=== PATIENT | female | born 1960 | race Caucasian/White ===

== ENCOUNTER 2018-10-09 09:11 | Emergency (ER) | payer BC ==
[2018-10-09 09:42] VITALS: BP 139/73
--- NOTE | 2018-10-09 10:28 | UC ---
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 Symptoms would "ebb and flow"; has been gradually worsening." -has been using saline rinses and azelastine. has h/o sinus infections. usually uses augmentin - History of Current Complaint Chief Complaint: UCGeneralIllness Stated Complaint: SINUSES Time Seen by Provider: 10/09/18 10:13 Hx Last Menstrual Period: 10 yrs Pain Intensity: 0 - Allergies/Home Medications Allergies/Adverse Reactions: Allergies Allergy/AdvReac Type Severity Reaction Status Date / Time morphine Allergy Altered Verified 10/09/18 09:37 Mental Status Home Medications: Home Medications Atorvastatin* [Lipitor*] 10 mg PO DAILY 10/09/18 [History Confirmed 10/09/18] buPROPion SR TAB* [Wellbutrin SR TAB*] 100 mg PO DAILY 10/09/18 [History Confirmed 10/09/18] PMH/Surg Hx/FS Hx/Imm Hx Previously Healthy: Yes Endocrine History: Diabetes - Surgical History Surgical History: Yes Surgery Procedure, Year, and Place: left knee 04/2014 [facility]; 3 level cervical disc 2008 [facility] [place]; hysterectomy 2004, breast reduction 2004; cholecystectomy 1994 [facility] - Family History Known Family History: Positive: Diabetes Negative: Cardiac Disease, Hypertension, Respiratory Disease - no asthma - Social History Alcohol Use: Rare Substance Use Type: None Smoking Status (MU): Former Smoker Length of Time of Smoking/Using Tobacco: 1 PPD x 15 Years When Did the Patient Quit Smoking/Using Tobacco: ~ Review of Systems All Other Systems Reviewed And Are Negative: Yes Constitutional: Positive: Fatigue Skin: Positive: Negative Eyes: Positive: Negative ENT: Positive: Sinus Pain/Tenderness Respiratory: Positive: Negative Cardiovascular: Positive: Negative Gastrointestinal: Positive: Negative Genitourinary: Positive: Negative Motor: Positive: Negative Neurovascular: Positive: Negative Musculoskeletal: Positive: Negative Neurological: Positive: Negative Psychological: Positive: Negative Is Patient Immunocompromised?: No Physical Exam Triage Information Reviewed: Yes Appearance: Well-Appearing, No Pain Distress, Well-Nourished - very pleasant, good historian Vital Signs: Initial Vital Signs Temp 98.3 F 10/09/18 09:35 Pulse 80 10/09/18 09:35 Resp 16 10/09/18 09:35 BP 139/73 10/09/18 09:35 Pulse Ox 100 10/09/18 09:35 Vital Signs Reviewed: Yes Eye Exam: Normal ENT: Positive: Pharynx normal, TMs normal, Sinus tenderness. Negative: Nasal congestion, Nasal drainage Dental Exam: Normal Neck exam: Normal Neck: Positive: Supple, Nontender, No Lymphadenopathy Respiratory Exam: Normal Respiratory: Positive: Lungs clear, Normal breath sounds, No respiratory distress, No accessory muscle use. Negative: Crackles, Rhonchi, Stridor, Wheezing Cardiovascular Exam: Normal Cardiovascular: Positive: RRR, No Murmur, Pulses Normal Abdomen Description: Positive: Nontender, Soft Musculoskeletal Exam: Normal Neurological Exam: Normal Psychological Exam: Normal Skin Exam: Normal Throat Pain/Nasal Course/Dx - Course Course Of Treatment: f/u with pcp 1-2 wks prn - Differential Dx/Diagnosis Differential Diagnosis/HQI/PQRI: Sinusitis, Tonsillitis Provider Diagnosis: Sinusitis Discharge - Sign-Out/Discharge Documenting (check all that apply): Patient Departure All imaging exams completed and their final reports reviewed: No Studies - Discharge Plan Condition: Stable Disposition: HOME Prescriptions: Amoxicillin/Clavulanate TAB* [Augmentin TAB 875*] 875 mg PO BID #20 tab Patient Education Materials: Sinusitis (ED) Referrals: Christine Joya MD [Primary Care Provider] - Additional Instructions: Make sure to take a probiotic daily while on antibiotics to help prevent a potential complication of antibiotic use called c diff. Some well known brands that can be found OTC are florastor, align and [employer] health. Make sure to complete the entire prescription unless advised otherwise by your health care provider. -continue with saline flush and azelastine - Billing Disposition and Condition Condition: STABLE Disposition: Home
== END 2018-10-09 10:35 | disposition home or self-care (01) ==
LOC: UCCORT 09:11
DX: J32.9 Chronic sinusitis, unspecified (principal); Z88.5 Allergy status to narcotic agent; E11.9 Type 2 diabetes mellitus without complications; Z87.891 Personal history of nicotine dependence
CPT/HCPCS: 99212; G0463

== ENCOUNTER 2019-11-24 20:29 | Emergency (ER) | payer BC ==
[2019-11-24 21:05] VITALS: BP 149/68
--- NOTE | 2019-11-24 21:48 | UC ---
Throat Pain/Nasal Justino HPI - HPI Summary HPI Summary: 59-year-old woman comes in with a chief complaint of sore throat. Been going on for about 3 days. She also has a frontal headache. She believes she has some postnasal drip. Has not seen any rhinorrhea. 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 No complaint of chest congestion or shortness of breath or body aches. - History of Current Complaint Chief Complaint: UCGeneralIllness Stated Complaint: SORE THROAT Time Seen by Provider: 11/24/19 21:23 Hx Last Menstrual Period: 10 yrs Pain Intensity: 4 - Allergies/Home Medications Allergies/Adverse Reactions: Allergies Allergy/AdvReac Type Severity Reaction Status Date / Time morphine Allergy Altered Verified 11/24/19 21:05 Mental Status Home Medications: Home Medications Multivitamin [Multivitamins] 1 cap PO DAILY 11/24/19 [History Confirmed 11/24/19 ] PMH/Surg Hx/FS Hx/Imm Hx Previously Healthy: Yes Endocrine History: Diabetes, Dyslipidemia Cardiovascular History: Hypertension GI/ History: Gastroesophageal Reflux - Surgical History Surgical History: Yes Surgery Procedure, Year, and Place[facility]; hysterectomy 2004, breast reduction 2004; cholecystectomy [facility] - Family History Known Family History: Positive: Diabetes Negative: Cardiac Disease, Hypertension, Respiratory Disease - no asthma - Social History Alcohol Use: Rare Substance Use Type: None Smoking Status (MU): Former Smoker Length of Time of Smoking/Using Tobacco: 1 PPD x 15 Years When Did the Patient Quit Smoking/Using Tobacco: 2002 Review of Systems All Other Systems Reviewed And Are Negative: Yes Constitutional: Positive: Other - SEE HPI Skin: Positive: Negative Eyes: Positive: Negative ENT: Positive: Sore Throat, Other - SEE HPI Respiratory: Positive: Negative Cardiovascular: Positive: Negative Gastrointestinal: Positive: Negative Motor: Positive: Negative Neurovascular: Positive: Negative Musculoskeletal: Positive: Negative Neurological: Positive: Negative Psychological: Positive: Negative Is Patient Immunocompromised?: No Physical Exam Triage Information Reviewed: Yes Appearance: Well-Appearing, No Pain Distress, Well-Nourished Vital Signs: Initial Vital Signs Temp 97.9 F 11/24/19 20:59 Pulse 68 11/24/19 20:59 Resp 18 11/24/19 20:59 BP 149/68 02/06/20 20:59 Pulse Ox 98 11/24/19 20:59 Vital Signs Reviewed: Yes Eye Exam: Normal Eyes: Positive: Conjunctiva Clear ENT: Positive: Pharyngeal erythema, TMs normal, Uvula midline. Negative: Tonsillar swelling, Tonsillar exudate Neck: Positive: Supple Respiratory: Positive: Lungs clear, Normal breath sounds, No respiratory distress Cardiovascular: Positive: RRR Musculoskeletal: Positive: Strength Intact, ROM Intact Neurological: Positive: Alert, Muscle Tone Normal Psychological: Positive: Age Appropriate Behavior Skin Exam: Normal Throat Pain/Nasal Course/Dx - Course Course Of Treatment: Strep was negative. We will treat symptomatically. We discussed viral versus bacterial infections and the role of antibiotics. Patient will get reevaluated if not improving or worse. - Differential Dx/Diagnosis Provider Diagnosis: Pharyngitis Discharge ED - Sign-Out/Discharge Documenting (check all that apply): Patient Departure All imaging exams completed and their final reports reviewed: No Studies - Discharge Plan Condition: Stable Disposition: HOME Patient Education Materials: Pharyngitis (ED) Referrals: [facility] [Outside] Additional Instructions: FOLLOW UP WITH YOUR DOCTOR IF NOT COMPLETELY IMPROVED. GET RECHECKED SOONER IF YOUR CONDITION WORSENS OR ANY QUESTIONS OR CONCERNS. - Billing Disposition and Condition Condition: STABLE Disposition: Home
== END 2019-11-24 21:53 | disposition home or self-care (01) ==
LOC: UCCORT 20:29
DX: J02.9 Acute pharyngitis, unspecified (principal); R09.82 Postnasal drip; R51 Headache; E11.9 Type 2 diabetes mellitus without complications; I10 Essential (primary) hypertension; Z88.5 Allergy status to narcotic agent; Z87.891 Personal history of nicotine dependence
CPT/HCPCS: 87651; 99211; G0463